=== PATIENT | female | born 1990 | race Caucasian/White ===

== ENCOUNTER 2018-08-21 08:38 | Outpatient (CLI) | payer OTHER ==
[2018-08-21 10:13] LABS: BASOPHILS % (AUTO) 0.6 % (0.0-2.0); EOSINOPHILS # (AUTO) 0.1 K/uL (0-0.4); EOSINOPHILS % (AUTO) 1.6 % (0.0-4.0); HEMATOCRIT 38.5 % (36-48); HEMOGLOBIN 12.5 g/dL (12.0-16.0); LYMPHOCYTES # (AUTO) 1.9 K/uL (2.5-16.5); LYMPHOCYTES % (AUTO) 38.2 % (20.5-51.1); MEAN CORPUSCULAR HEMOGLOBIN 27 pg (27-31); MEAN CORPUSCULAR HGB CONC 33 g/dL (33-37); MEAN CORPUSCULAR VOLUME 84.2 fL (80-94); MONOCYTES # (AUTO) 0.4 K/uL (0.8-1.0); MONOCYTES % (AUTO) 7.5 % (1.7-9.3); NEUTROPHILS # (AUTO) 2.7 K/uL (1.8-7.7); NEUTROPHILS % (AUTO) 52.1 % (42.2-75.2); PLATELET COUNT (AUTO) 269 K/uL (140-450); RED BLOOD CELL COUNT(AUTO) 4.57 MIL/uL (4.20-5.40); RED CELL DISTRIBUTION WIDTH 13.5 % (11.6-13.7); WHITE BLOOD COUNT (AUTO) 5.1 K/uL (4.8-10.8)
[2018-08-21 10:33] LABS: ANION GAP 13.1 (8-16); CARBON DIOXIDE 26.9 mmol/L (21-32); CREATININE 0.7 mg/dL (0.6-1.3)
[2018-08-21 10:48] LABS: ALBUMIN 3.5 g/dL (3.4-5.0); CHOL/HDL RATIO 3.3 (1-4.5); FREE T4 (FREE THYROXINE) 1.03 ng/dL (0.76-1.46); THYROID STIMULATING HORMONE 1.17 uIU/mL (0.34-3.74); TOTAL BILIRUBIN 0.5 mg/dL (0.0-1.0)
[2018-08-21 11:07] LABS: APPEARANCE,URINE CLEAR (CLEAR); BILIRUBIN,URINE NEGATIVE (NEGATIVE); BLOOD, URINE NEGATIVE (NEGATIVE); COLOR,URINE YELLOW (YELLOW); LEUKOCYTE ESTERASE ,URINE NEGATIVE (NEGATIVE); NITRITE, URINE NEGATIVE (NEGATIVE); PH,URINE 7.5 (5.0-9.0); UGLUCOSE NEGATIVE (NEGATIVE)
[2018-08-21 11:17] LABS: PHOSPHORUS 3.4 mg/dL (2.5-4.9)
[2018-08-21 11:37] LABS: URIC ACID 3.8 mg/dL (2.6-7.2)
[2018-08-22 09:06] LABS: HEPATITIS B SURFACE ANTIBODY Reactive (.); T3 UPTAKE 24 % (24-39)
[2018-08-22 15:12] LABS: VARICELLA IGG ANTIBODY 2843 index (Immune >165)
== END 2018-08-21 21:06 | disposition home or self-care (01) ==
LOC: MLB 08:38
DX: Z00.00 Encounter for general adult medical examination without abnormal findings (principal)
CPT/HCPCS: 36415; 80053; 81003; 82040; 82435; 82565; 82607; 82947; 83036; 84100; 84132; 84295; 84439; 84443; 84479; 84520; 84550; 85025; 86706; 86762; 86765; 86787

== ENCOUNTER 2019-12-14 10:30 | Emergency (ER) | payer OTHER ==
[~2019-12-14] VITALS: Ht 157.5 cm; Wt 63.5 kg
[2019-12-14] MEDS ORDERED: ALBUTEROL HFA MDI 90 MCG/ACTUATION 8 GM INH ONE (10:35)
[2019-12-14 10:38] VITALS: BP 141/89
[2019-12-14 11:50] VITALS: BP 137/88
== END 2019-12-14 11:51 | disposition home or self-care (01) ==
LOC: MED 10:30
DX: R06.02 Shortness of breath (principal)
CPT/HCPCS: 71046; 94664; 99283; J3535; 93005

== ENCOUNTER 2020-08-18 18:51 | Emergency (ER) | payer OTHER ==
[~2020-08-18] VITALS: Ht 162.6 cm; Wt 68.0 kg
[2020-08-18 19:07] VITALS: BP 132/76
--- NOTE | 2020-08-18 19:10 | NUR ---
Patient discharged with v/s stable. Written and verbal after care instructions given and explained. Patient alert, oriented and verbalized understanding of instructions. Ambulatory with steady gait. All questions addressed prior to discharge. ID band removed. Patient advised to follow up with PMD. Rx of vitamin c, promethazine, ibuprofen given. Patient educated on indication of medication including possible reaction and side effects. Opportunity to ask questions provided and answered.
--- NOTE | 2020-08-18 19:44 | NUR ---
LAB REPORTED PT IS + FOR COVID.
== END 2020-08-18 19:10 | disposition home or self-care (01) ==
LOC: MED 18:51
DX: U07.1 COVID-19 (principal); M79.10 Myalgia, unspecified site; R51.9 Headache, unspecified; R53.83 Other fatigue
CPT/HCPCS: 87426; 99283; U0003

== ENCOUNTER 2020-10-17 07:27 | Outpatient (CLI) | payer OTHER ==
[2020-10-17 08:19] LABS: ALBUMIN 3.7 g/dL (3.4-5.0); ANION GAP 13.2 (8-16); BILIRUBIN,DIRECT 0.2 mg/dL (0.0-0.3); CARBON DIOXIDE 26.3 mmol/L (21-32); CHOL/HDL RATIO 3.1 (1-4.5); CREATININE 0.7 mg/dL (0.6-1.3); POTASSIUM 3.5 mmol/L (3.5-5.1); THYROID STIMULATING HORMONE 1.74 uIU/mL (0.34-3.74); TOTAL BILIRUBIN 0.6 mg/dL (0.0-1.0)
[2020-10-17 09:39] LABS: APPEARANCE,URINE CLEAR (CLEAR); BILIRUBIN,URINE NEGATIVE (NEGATIVE); BLOOD, URINE NEGATIVE (NEGATIVE); COLOR,URINE YELLOW (YELLOW); LEUKOCYTE ESTERASE ,URINE TRACE (NEGATIVE); NITRITE, URINE NEGATIVE (NEGATIVE); UGLUCOSE NEGATIVE (NEGATIVE)
[2020-10-17 09:59] LABS: RBC,URINE 0-5 /HPF (0-5); WBC,URINE 0-5 /HPF (0-5)
== END 2020-10-17 21:24 | disposition home or self-care (01) ==
LOC: MLB 07:27
DX: Z00.00 Encounter for general adult medical examination without abnormal findings (principal)
CPT/HCPCS: 36415; 80053; 80076; 81001; 83036; 84443

== ENCOUNTER 2021-08-16 21:56 | Emergency (ER) | payer OTHER ==
[~2021-08-16] VITALS: Ht 152.4 cm; Wt 77.1 kg
--- NOTE | 2021-08-16 22:07 | NUR ---
PT AMBULATED TO BED 7
[2021-08-16 22:11] VITALS: BP 140/89
--- NOTE | 2021-08-16 23:47 | NUR ---
PT IS A 31 Y/O BIBS PT WITH C/O SIDE FLANK PAIN THAT HAD BEEN CONSTANT FOR 2 WEEKS. PT STATES THAT IT THROBS NO MATTER WESLEY SHE DOES BUT IT ACTS UP MORE AT NIGHT. PT DENIES F/N/V/SOB/CHEST PAIN.NO PAIN/BURNING DURING URINATION PT STATED THAT THE PAIN IN HER SIDE/ BACK IS STRONG ENOUGHT TO KEEP HER UP AT NIGHT. PT IS AX0 X 4 AMULATORY AND SITTING ON BED
[2021-08-17] MEDS ORDERED: ONDANSETRON 4 MG/2 ML VIAL IVP ONE
[2021-08-17] MEDS ORDERED: PANTOPRAZOLE 40 MG INJ VIAL IVP ONE
[2021-08-17] MEDS ORDERED: MORPHINE SULFATE 4 MG/ML SYR IVP ONE
[2021-08-17] MEDS ORDERED: NACL 0.9% 1,000 ML IV ONE
[2021-08-17 00:19] LABS: BASOPHILS % (AUTO) 0.3 % (0.0-2.0); EOSINOPHILS # (AUTO) 0.1 K/uL (0-0.4); HEMATOCRIT 36.1 % (36-48); HEMOGLOBIN 12.2 g/dL (12.0-16.0); LYMPHOCYTES # (AUTO) 2.7 K/uL (2.5-16.5); LYMPHOCYTES % (AUTO) 43.8 % (20.5-51.1); MEAN CORPUSCULAR HEMOGLOBIN 29 pg (27-31); MEAN CORPUSCULAR HGB CONC 34 g/dL (33-37); MEAN CORPUSCULAR VOLUME 84.7 fL (80-94); MONOCYTES # (AUTO) 0.5 K/uL (0.8-1.0); MONOCYTES % (AUTO) 8.8 % (1.7-9.3); NEUTROPHILS # (AUTO) 2.7 K/uL (1.8-7.7); NEUTROPHILS % (AUTO) 45.1 % (42.2-75.2); PLATELET COUNT (AUTO) 288 K/uL (140-450); RED BLOOD CELL COUNT(AUTO) 4.26 MIL/uL (4.20-5.40); RED CELL DISTRIBUTION WIDTH 13.3 % (11.6-13.7); WHITE BLOOD COUNT (AUTO) 6.1 K/uL (4.8-10.8)
[2021-08-17 00:25] LABS: APPEARANCE,URINE CLEAR (CLEAR); BILIRUBIN,URINE NEGATIVE (NEGATIVE); BLOOD, URINE NEGATIVE (NEGATIVE); COLOR,URINE YELLOW (YELLOW); LEUKOCYTE ESTERASE ,URINE NEGATIVE (NEGATIVE); NITRITE, URINE NEGATIVE (NEGATIVE); UGLUCOSE NEGATIVE (NEGATIVE)
[2021-08-17] MEDS ORDERED: HYDROcodone/APAP 5/325 MG 1 TAB TAB PO ONE (00:40)
[2021-08-17 00:43] LABS: ALBUMIN 3.5 g/dL (3.4-5.0); ANION GAP 8.4 (8-16); CARBON DIOXIDE 30.1 mmol/L (21-32); CREATININE 0.8 mg/dL (0.6-1.3); POTASSIUM 3.5 mmol/L (3.5-5.1); TOTAL BILIRUBIN 0.3 mg/dL (0.0-1.0)
[2021-08-17] MEDS ORDERED: FAMO-92 PO (01:51)
[2021-08-17 01:57] VITALS: BP 104/62
--- NOTE | 2021-08-17 01:59 | NUR ---
Patient discharged with v/s stable. Written and verbal after care instructions given and explained. Patient verbalized understanding. Ambulatory with steady gait. All questions addressed prior to discharge. Advised to follow up with PMD.
== END 2021-08-17 01:58 | disposition home or self-care (01) ==
LOC: MED 21:56
DX: K25.9 Gastric ulcer, unspecified as acute or chronic, without hemorrhage or perforation (principal); Z79.899 Other long term (current) drug therapy
CPT/HCPCS: 36415; 71250; 74176; 80053; 81003; 81025; 85025; 96361; 96374; 99285; C9113; J7030; 99284

== ENCOUNTER 2021-09-15 18:31 | Emergency (ER) | payer OTHER ==
[~2021-09-15] VITALS: Ht 154.9 cm; Wt 68.0 kg
[2021-09-15 18:31] VITALS: BP 136/91
[~2021-09-15 18:31] MED LIST: FAMO-92 PO
--- NOTE | 2021-09-15 18:52 | NUR ---
PT AMBULATED TO ER BED 3 WITH A STEADY GAIT.
--- NOTE | 2021-09-15 19:04 | NUR ---
CLAY RING&Dewayne, WALKED TO LAB AT THIS TIME.
[2021-09-15] MEDS: KETOROLAC 30 MG/ML VIAL IM ONE (19:09)
[2021-09-15] MEDS: ONDANSETRON 4 MG/2 ML VIAL IVP ONE (19:10)
--- NOTE | 2021-09-15 19:10 | NUR ---
REPORT RECIEVED FROM TOM GOODWIN TO ASSUME CARE OF PT.
[2021-09-15] MEDS: NACL 0.9% 1,000 ML IV ONE (19:11)
--- NOTE | 2021-09-15 19:20 | NUR ---
PT ALERT AND ORIENTED X4. LYING IN BED WITH EYES OPEN. EQUAL RISE AND FALL OF THE CHEST. NO ACUTE DISTRESS NOTED. DENIES ANY FURTHER NEEDS. WILL CONTINUE TO MONITOR.
--- NOTE | 2021-09-15 19:28 | NUR ---
GAVE REPORT TO TOM JERRY. TRANSFER OF CARE AT THIS TIME.
[2021-09-15] MEDS ORDERED: DICYCLOMINE HCL LIQUID 10 MG/5 ML UDC ONE (19:40)
[2021-09-15] MEDS ORDERED: ALUMINUM HYD/MAG/SIMETHICONE 30 ML UDC ONE ×2 (19:40→19:41)
[2021-09-15] MEDS: DICYCLOMINE HCL LIQUID 20 MG, ALUMINUM HYD/MAG/SIMETHICONE 30 ML, LIDOCAINE VISCOUS 2% ... PO ONE ×3 (19:53)
[2021-09-15] MEDS ORDERED: FAMO-90 PO (20:19)
[2021-09-15] MEDS ORDERED: ONDA4TAB PO (20:19)
[2021-09-15 20:44] VITALS: BP 126/74
--- NOTE | 2021-09-15 20:45 | NUR ---
Patient discharged with v/s stable. Written and verbal after care instructions given and explained. Patient alert, oriented and verbalized understanding of instructions. Ambulatory with steady gait. All questions addressed prior to discharge. ID band removed. Patient advised to follow up with PMD. Rx of ZOFRAN, PEPCID given. Patient educated on indication of medication including possible reaction and side effects. Opportunity to ask questions provided and answered.
--- NOTE | 2021-09-19 12:55 | NUR ---
LATE ENTRY- IV NORMAL SALINE DISCONTINUED AT 2044.
== END 2021-09-15 20:45 | disposition home or self-care (01) ==
LOC: MED 18:31
DX: E86.0 Dehydration (principal); Z20.822 Contact with and (suspected) exposure to COVID-19; R03.0 Elevated blood-pressure reading, without diagnosis of hypertension; Z79.899 Other long term (current) drug therapy
CPT/HCPCS: 81002; 81025; 87426; 87804; 96361; 96374; 96375; 99284; J1885; J2405; J7030; U0003

== ENCOUNTER 2022-04-19 09:55 | Outpatient (CLI) | payer OTHER ==
[~2022-04-19 09:55] MED LIST changes: +FAMO-90 PO; -FAMO-92 PO; +ONDA4TAB PO
[2022-04-19 10:24] LABS: APPEARANCE,URINE CLEAR (CLEAR); BILIRUBIN,URINE NEGATIVE (NEGATIVE); BLOOD, URINE 2+ (NEGATIVE); COLOR,URINE YELLOW (YELLOW); LEUKOCYTE ESTERASE ,URINE NEGATIVE (NEGATIVE); NITRITE, URINE NEGATIVE (NEGATIVE); PH,URINE 7.5 (5.0-9.0); UGLUCOSE NEGATIVE (NEGATIVE)
[2022-04-19 10:40] LABS: ALBUMIN 3.7 g/dL (3.4-5.0); BILIRUBIN,DIRECT 0.2 mg/dL (0.0-0.3); TOTAL BILIRUBIN 0.5 mg/dL (0.0-1.0)
[2022-04-19 10:49] LABS: RBC,URINE 0-5 /HPF (0-5); WBC,URINE 0-5 /HPF (0-5)
[2022-04-19 11:20] LABS: BASOPHILS % (AUTO) 0.3 % (0.0-2.0); EOSINOPHILS # (AUTO) 0.1 K/uL (0-0.4); EOSINOPHILS % (AUTO) 2.2 % (0.0-4.0); HEMATOCRIT 40.4 % (36-48); HEMOGLOBIN 13.5 g/dL (12.0-16.0); LYMPHOCYTES # (AUTO) 2.2 K/uL (2.5-16.5); LYMPHOCYTES % (AUTO) 46.7 % (20.5-51.1); MEAN CORPUSCULAR HEMOGLOBIN 28 pg (27-31); MEAN CORPUSCULAR HGB CONC 33 g/dL (33-37); MEAN CORPUSCULAR VOLUME 84.7 fL (80-94); MONOCYTES # (AUTO) 0.2 K/uL (0.8-1.0); MONOCYTES % (AUTO) 4.4 % (1.7-9.3); NEUTROPHILS # (AUTO) 2.2 K/uL (1.8-7.7); NEUTROPHILS % (AUTO) 46.4 % (42.2-75.2); PLATELET COUNT (AUTO) 336 K/uL (140-450); RED BLOOD CELL COUNT(AUTO) 4.77 MIL/uL (4.20-5.40); RED CELL DISTRIBUTION WIDTH 13.5 % (11.6-13.7); WHITE BLOOD COUNT (AUTO) 4.7 K/uL (4.8-10.8)
[2022-04-19 11:45] LABS: ALBUMIN 3.7 g/dL (3.4-5.0); ANION GAP 13.1 (8-16); CARBON DIOXIDE 25.7 mmol/L (21-32); CREATININE 0.7 mg/dL (0.6-1.3); POTASSIUM 3.8 mmol/L (3.5-5.1); THYROID STIMULATING HORMONE 1.3 uIU/mL (0.34-3.74); TOTAL BILIRUBIN 0.5 mg/dL (0.0-1.0); URIC ACID 3.6 mg/dL (2.6-7.2)
[2022-04-20 08:07] LABS: T4 FREE (DIRECT) 1.38 ng/dL (0.82-1.77)
== END 2022-04-19 22:12 | disposition home or self-care (01) ==
LOC: MLB 09:55
PROVIDERS: ATTEND Family Medicine
DX: Z01.419 Encounter for gynecological examination (general) (routine) without abnormal findings (principal); Z13.21 Encounter for screening for nutritional disorder; Z13.29 Encounter for screening for other suspected endocrine disorder; Z13.0 Encounter for screening for diseases of the blood and blood-forming organs and certain disorders involving the immune mechanism; Z13.1 Encounter for screening for diabetes mellitus
CPT/HCPCS: 36415; 80053; 80076; 81001; 82306; 82607; 83540; 84439; 84443; 84480; 84550; 85025; 87086